=== PATIENT | male | born 1955 | race Caucasian/White ===

== ENCOUNTER 2022-12-14 21:22 | Emergency (ER) | payer OTHER, MEDICARE ==
[~2022-12-14] VITALS: Ht 175.3 cm; Wt 93.2 kg
[2022-12-14] MEDS ORDERED: ibuprofen tablet 400 MG TABLET PO ONE (21:45)
[2022-12-15] MEDS ORDERED: TETanus/Pertussis (Acell)/Diphther VAC/PF (Tdap-Adult) 0.5ml syringe IMVAC ONE (00:25)
[2022-12-15 00:30] VITALS: BP 159/89; PULSE 79; RESP 14; TEMP 98; O2SAT 96
[2022-12-15] MEDS ORDERED: LIDOcaine 1% 30ml preserv. free vial IJ ONE (02:25)
[2022-12-15] MEDS ORDERED: LIDOCAINE HCL 10 MG/ML 1% MDV 50ml injection IJ ONE (02:50)
== END 2022-12-15 04:21 | disposition home or self-care (01) ==
LOC: ER 21:23
DX: S61.216A Laceration without foreign body of right little finger without damage to nail, initial encounter (principal); X58.XXXA Exposure to other specified factors, initial encounter; Y93.89 Activity, other specified; Y92.89 Other specified places as the place of occurrence of the external cause; Y99.8 Other external cause status
CPT/HCPCS: 12001; 90471; 90715; 99283; A6223; A6449